=== PATIENT | male | born 1970 | race Caucasian/White ===

== ENCOUNTER 2017-02-15 10:56 | Emergency (ER) | payer MEDICARE, MEDICAID ==
[~2017-02-15] VITALS: Ht 177.8 cm; Wt 130.2 kg
[~2017-02-15 10:56] MED LIST: ASPI1TAB PO; CYMB60CA3 PO; DEPA500T2 PO; LIDO1OIN2 TOP; MAXA10TA14 PO; NEXI40CA PO; TRAM50TA2 PO; VITA100037 PO
[2017-02-15] MEDS ORDERED: ESCI10TA2 (11:11)
[2017-02-15] MEDS ORDERED: RIZA10TA4 (11:11)
[2017-02-15] MEDS ORDERED: LEVO50TA5 (11:11)
[2017-02-15] MEDS ORDERED: NS 1,000 ML IV ONE (13:15)
[2017-02-15] MEDS ORDERED: KETOROLAC 30 MG/ML VIAL (J1885) IV ONE (13:15)
[2017-02-15] MEDS ORDERED: ONDANSETRON 4MG/2ML VIAL (J2405) IV ONE (13:15)
--- NOTE | 2017-02-15 13:53 | REP ---
CT abdomen pelvis without IV or bowel contrast: Comparison is 2013. There is no hydronephrosis or hydroureter on the right on the left. There are no ureteral or bladder calculi on the right or the left. There are two right renal calculi approximately 3 mm in diameter each. There are approximately five left renal calculi measuring up to 6 mm in diameter. The right renal calculi are unchanged. There were no left renal calculi previously. The visualized lung lemus are unremarkable. The unenhanced hepatic parenchyma, gallbladder, pancreas and spleen are normal size and unremarkable. The adrenals are unremarkable. The unenhanced renal cortices are unremarkable. The abdominal aorta is unremarkable. Bowel and mesentery are unremarkable. Pelvis: The appendix has a normal appearance. There is no ascites or adenopathy. The bladder is unremarkable. The pelvic bowel loops are unremarkable. Impression: Bilateral nonobstructive renal calculi. No hydronephrosis. No ureteral or bladder calculi. Otherwise, negative CT of the abdomen and pelvis. Signed by Tenzin Bains MD 02/15/2017 01:44 P
[2017-02-15 14:18] LABS: BASO % 0.4 % (0.0-1.0); EOS # 0.4 K/mm3 (0.0-0.50); EOS % 4.3 % (0.0-3.0); LARGE UNSTAINED CELL # 0.1 K/mm3 (0.0-0.4); LARGE UNSTAINED CELL % 1.2 % (0.0-4.0); LYMPH # 2.5 K/mm3 (1.5-4.5); LYMPH % 24.6 % (24.0-44.0); MEAN CORPUSCULAR HEMOGLOBIN 27.4 pg (27.0-33.0); MEAN CORPUSCULAR HGB CONC 34.2 g/dl (32.0-36.5); MEAN CORPUSCULAR VOLUME 80.1 fl (80.0-96.0); MONO # 0.5 K/mm3 (0.0-0.8); MONO % 5.6 % (0.0-5.0); NEUTROPHILS # 6.1 K/mm3 (1.8-7.7); NEUTROPHILS % 63.9 % (36.0-66.0); PLATELET COUNT, AUTOMATED 236 k/mm3 (150-450); RED CELL DISTRIBUTION WIDTH 13.6 % (11.5-14.5); WHITE BLOOD COUNT 9.5 K/mm3 (4.0-10.0)
[2017-02-15 14:38] LABS: ALBUMIN 3.6 GM/DL (3.2-5.2); ALBUMIN/GLOBULIN RATIO 0.72 (1.00-1.93); ALKALINE PHOSPHATASE 88 U/L (45-117); ALT/SGPT 36 U/L (12-78); ANION GAP 5 MEQ/L (8-16); AST/SGOT 20 U/L (15-37); BILIRUBIN,DIRECT < 0.1 MG/DL (0.0-0.2); BILIRUBIN,TOTAL 0.4 MG/DL (0.2-1.0); BLOOD UREA NITROGEN 13 MG/DL (7-18); CALCIUM LEVEL 8.8 MG/DL (8.5-10.1); CARBON DIOXIDE LEVEL 28 MEQ/L (21-32); CHLORIDE LEVEL 102 MEQ/L (98-107); CREATININE FOR GFR 0.91 MG/DL (0.70-1.30); GLOMERULAR FILTRATION RATE > 60.0 (>60); GLUCOSE, FASTING 87 MG/DL (70-105); POTASSIUM SERUM 4.2 MEQ/L (3.5-5.1); SODIUM LEVEL 135 MEQ/L (136-145); TOTAL PROTEIN 8.6 GM/DL (6.4-8.2)
[2017-02-15] MEDS ORDERED: NAPR500T PO (14:57)
[2017-02-15 15:07] VITALS: BP 149/81
== END 2017-02-15 15:09 | disposition home or self-care (01) ==
LOC: M ED 12:14
DX: N23 Unspecified renal colic (principal); N20.0 Calculus of kidney; K21.9 Gastro-esophageal reflux disease without esophagitis; Z87.442 Personal history of urinary calculi; Z79.899 Other long term (current) drug therapy
CPT/HCPCS: 74176; 80048; 80076; 83690; 85025; 96374; 96375; 99282; J1885; J2405

== ENCOUNTER 2017-11-23 19:25 | Emergency (ER) | payer MEDICARE, MEDICAID ==
[2017-11-23 21:07] LABS: BASO % 0.4 % (0.0-1.0); EOS # 0.5 10^3/uL (0.0-0.50); EOS % 4.9 % (0.0-3.0); HEMATOCRIT 42.9 % (42.0-52.0); HEMOGLOBIN 13.6 g/dl (14.0-18.0); IMMATURE GRANULOCYTE # 0.1 10^3/uL (0-0); IMMATURE GRANULOCYTE % 0.8 % (0-0); LYMPH # 3.3 10^3/uL (1.5-4.5); MEAN CORPUSCULAR HGB CONC 31.7 g/dl (32.0-36.5); MEAN CORPUSCULAR VOLUME 81.9 fl (80.0-96.0); MONO # 0.9 10^3/uL (0.0-0.8); NEUTROPHILS # 5.9 10^3/uL (1.8-7.7); NEUTROPHILS % 54.9 % (36.0-66.0); PLATELET COUNT, AUTOMATED 242 10^3/uL (150-450); RED BLOOD COUNT 5.24 10^6/uL (4.30-6.10); RED CELL DISTRIBUTION WIDTH 14.1 % (11.5-14.5); WHITE BLOOD COUNT 10.7 10^3/uL (4.0-10.0)
[2017-11-23] MEDS: NS 1,000 ML IV (21:14)
[2017-11-23] MEDS: MORPHINE 4 MG/ML 1ML SYRINGE IV (21:15)
[2017-11-23 21:37] LABS: ALBUMIN 3.4 GM/DL (3.2-5.2); ALBUMIN/GLOBULIN RATIO 0.87 (1.00-1.93); ALKALINE PHOSPHATASE 96 U/L (45-117); ALT/SGPT 43 U/L (12-78); ANION GAP 7 MEQ/L (8-16); AST/SGOT 26 U/L (7-37); BILIRUBIN,DIRECT < 0.1 MG/DL (0.0-0.2); BILIRUBIN,TOTAL 0.2 MG/DL (0.2-1.0); BLOOD UREA NITROGEN 15 MG/DL (7-18); CALCIUM LEVEL 8.4 MG/DL (8.5-10.1); CARBON DIOXIDE LEVEL 27 MEQ/L (21-32); CHLORIDE LEVEL 109 MEQ/L (98-107); CREATININE FOR GFR 0.85 MG/DL (0.70-1.30); GLOMERULAR FILTRATION RATE > 60.0 (>60); GLUCOSE, FASTING 118 MG/DL (70-105); LIPASE 134 U/L (73-393); POTASSIUM SERUM 4.4 MEQ/L (3.5-5.1); SODIUM LEVEL 143 MEQ/L (136-145); TOTAL PROTEIN 7.3 GM/DL (6.4-8.2)
[2017-11-23 23:05] LABS: KETONE, URINE AUTO RFX NEGATIVE (NEGATIVE); LEUKOCYTE ESTERASE UR AUTO RFX NEGATIVE (NEGATIVE); MUCUS, URINE RFX SMALL (NEGATIVE); NITRITE, URINE AUTO RFX NEGATIVE (NEGATIVE); RBC, URINE AUTO RFX 3 /HPF (0-3); SQUAM EPITHELIAL CELL UR AURFX 0 /HPF (0-6); WBC, URINE AUTO RFX 0 /HPF (0-3)
== END 2017-11-23 23:53 | disposition home or self-care (01) ==
LOC: M ED 19:25
DX: R10.9 Unspecified abdominal pain (principal); N20.0 Calculus of kidney; K76.0 Fatty (change of) liver, not elsewhere classified; Z87.442 Personal history of urinary calculi; K21.9 Gastro-esophageal reflux disease without esophagitis; G43.909 Migraine, unspecified, not intractable, without status migrainosus; F41.0 Panic disorder [episodic paroxysmal anxiety]; Z79.899 Other long term (current) drug therapy
CPT/HCPCS: 74176

== ENCOUNTER → 2018-03-20 | Outpatient (CLI) | payer MEDICARE, MEDICAID | LOC: M LAB 13:12 | DX: M25.552 Pain in left hip (principal) | CPT/HCPCS: 73501 ==

== ENCOUNTER → 2020-04-17 | Outpatient (CLI) | payer MEDICARE, MEDICAID ==
[~2020-04-17] MED LIST changes: -ASPI1TAB PO; +ASPI81TA26 PO; +E-Z-GAS II EFFERVESCENT PACKET (SODIUM BICARB./CITRIC ACID/SIMETHICONE) As Ordered ONE; +E-Z-HD 98% w/w 340GM SUSP BTL As Ordered ONE; +E-Z-PAQUE 96% w/w SUSP 176GM BTL As Ordered ONE; +ESCI10TA2; +LEVO50TA5; +NAPR-837 PO; +RIZA10TA58; -VITA100037 PO; +VITA100067 PO
--- NOTE | 2020-04-17 19:13 | REP ---
Upper GI air contrast The procedure was performed under the direct supervision of Dr. Armas. The images were reviewed with Dr. Armas The go cart mechanic film shows no organomegaly or pathological masses. The intestinal gas pattern is non-specific. Liquid barium and gas producing crystals were given in the erect position as well as liquid barium in the prone oblique position in order to perform a double contrast upper GI examination. The oral and pharyngeal stages of deglutition are unremarkable. Esophageal transport is prompt and efficient and there is no esophagitis, stricture or mucosal ring. There is a sliding type hiatal hernia. Gastroesophageal reflux is not demonstrated on this examination. The stomach ramos are normally outlined . The rugal folds are smooth and regular. There is no gastritis neoplasm or ulcer disease. The duodenal ramos are normally outlined . The mucosal folds are smooth and regular. There is no duodenitis pancreatitis peptic ulcer disease or neoplasm. The visualized portion of the proximal small bowel appears normal in course and caliber. Impression: There is a sliding type hiatal hernia. Otherwise, unremarkable double contrast upper GI examination. 1.5 minutes of fluoro time was utilized for this procedure. Electronically Signed by DEVONTE Galvan 04/17/2020 04:44 P Electronically Signed by Tenzin Armas MD 04/17/2020 07:04 P
== END ==
LOC: M RAD 10:11
PROVIDERS: ATTEND Physician Assistant
DX: R10.9 Unspecified abdominal pain (principal); K44.9 Diaphragmatic hernia without obstruction or gangrene

== ENCOUNTER → 2020-05-23 | Outpatient (CLI) | payer MEDICARE, MEDICAID ==
[~2020-05-23] MED LIST changes: -E-Z-GAS II EFFERVESCENT PACKET (SODIUM BICARB./CITRIC ACID/SIMETHICONE) As Ordered ONE; -E-Z-HD 98% w/w 340GM SUSP BTL As Ordered ONE; -E-Z-PAQUE 96% w/w SUSP 176GM BTL As Ordered ONE
--- NOTE | 2020-05-24 12:09 | REP ---
REASON: Possible ventral hernia. Patient has epigastric pain. Ultrasonographic evaluation of the abdominal wall shows a 2.2-cm sized ventral rent through which mesentery and bowel protrudes. IMPRESSION: Evidence of a ventral hernia, as described above. Consider CT for complete evaluation. Electronically Signed by Nain Bhatti DO 05/25/2020 08:23 A
== END ==
LOC: M RAD 13:18
PROVIDERS: ATTEND Surgery
DX: K43.9 Ventral hernia without obstruction or gangrene (principal)

== ENCOUNTER → 2020-10-22 | Outpatient (REF) | payer MEDICARE, MEDICAID | LOC: M LAB REF 09:14 | PROVIDERS: ATTEND Physician Assistant | DX: Z20.2 Contact with and (suspected) exposure to infections with a predominantly sexual mode of transmission (principal) ==

== ENCOUNTER → 2021-08-07 | Outpatient (CLI) | payer MEDICARE, MEDICAID ==
[~2021-08-07] MED LIST changes: +ESCI10TA16; -ESCI10TA2
--- NOTE | 2021-08-07 11:37 | REP ---
INDICATION: WHEEZING. COMPARISON: June 03, 2016. TECHNIQUE: Three views.. FINDINGS: The lungs are well inflated and free of infiltrate. The pleural angles are sharp. The heart size is normal. Pulmonary vasculature is not increased. No significant bony abnormality is seen. IMPRESSION: Negative chest x-ray. <Electronically signed by Carlos Duncan > 08/07/21 0920
--- NOTE | 2021-08-07 11:49 | REP ---
INDICATION: PAIN. COMPARISON: None. TECHNIQUE: Four views of the right shoulder are provided. FINDINGS: There is osteoarthritic hypertrophy and narrowing of the right acromioclavicular joint. There is glenohumeral spurring as well. Glenohumeral acromioclavicular joints are normally aligned. Periarticular soft tissues are unremarkable. The visualized right rib cage is unremarkable. 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 No acute bony abnormality. <Electronically signed by Carlos Duncan > 08/07/21 [id number]
== END ==
LOC: M WUC 10:25
PROVIDERS: ATTEND Physician Assistant
DX: R06.2 Wheezing (principal); M19.011 Primary osteoarthritis, right shoulder

== ENCOUNTER 2021-10-31 16:50 | Emergency (ER) | payer MEDICARE, MEDICAID ==
[~2021-10-31] VITALS: Ht 177.8 cm; Wt 125.6 kg
[~2021-10-31 16:50] MED LIST changes: -CYMB60CA3 PO; +CYMB60CA4 PO
[2021-10-31 16:51] VITALS: BP 143/92
[2021-10-31] MEDS ORDERED: VENTAER INH (17:00)
[2021-10-31] MEDS ORDERED: PRED20TA PO (17:44)
[2021-10-31] MEDS ORDERED: predniSONE 20 MG TAB PO ONE (17:50)
== END 2021-10-31 18:00 | disposition home or self-care (01) ==
LOC: M ED 16:50
DX: J20.9 Acute bronchitis, unspecified (principal); E78.5 Hyperlipidemia, unspecified; F32.89 Other specified depressive episodes; Z87.442 Personal history of urinary calculi; Z87.11 Personal history of peptic ulcer disease
CPT/HCPCS: 71045; 99282; J7512

== ENCOUNTER → 2022-10-18 | Outpatient (CLI) | payer MEDICARE, MEDICAID ==
[~2022-10-18] MED LIST changes: -MAXA10TA14 PO; +PRED20TA PO; +RIZA10TA64 PO; +VENTAER INH
[2022-10-18 17:13] LABS: HEMOGLOBIN 14.6 g/dl (13.5-17.5); MEAN CORPUSCULAR HEMOGLOBIN 25.3 pg (27.0-33.0); MEAN CORPUSCULAR HGB CONC 30.4 g/dl (32.0-36.5); MEAN CORPUSCULAR VOLUME 83.3 fl (80.0-96.0); PLATELET COUNT, AUTOMATED 265 10^3/uL (150-450); RED BLOOD COUNT 5.76 10^6/uL (4.30-6.10); WHITE BLOOD COUNT 11.3 10^3/uL (4.0-10.0)
[2022-10-18 17:56] LABS: ALBUMIN 3.2 G/DL (3.2-5.2); ALKALINE PHOSPHATASE 95 U/L (46-116); ALT/SGPT 45 U/L (7.0-40); AST/SGOT 25 U/L (<34); BILIRUBIN,TOTAL 0.2 MG/DL (0.3-1.2); BLOOD UREA NITROGEN 16 MG/DL (9-23); CALCIUM LEVEL 8.4 MG/DL (8.5-10.1); CARBON DIOXIDE LEVEL 27 MMOL/L (20-31); CHLORIDE LEVEL 105 MMOL/L (98-107); CHOLESTEROL LEVEL 123 MG/DL (<200); CHOLESTEROL RISK RATIO 3.73 (<5); CREATININE FOR GFR 0.73 MG/DL (0.70-1.30); GLOMERULAR FILTRATION RATE > 60.0 (>56); GLUCOSE, FASTING 90 MG/DL (60-100); HDL CHOLESTEROL 32.9 MG/DL (>40); LDL CHOLESTEROL 37.1 MG/DL (<100); NON-HDL-C 90 MG/DL; POTASSIUM SERUM 4.4 MMOL/L (3.5-5.1); PROSTATIC SPECIFIC AG MONITOR 0.87 NG/ML (< 4.00); SODIUM LEVEL 139 MMOL/L (136-145); TOTAL PROTEIN 6.9 G/DL (5.7-8.2); TRIGLYCERIDES LEVEL 265 MG/DL (<150)
[2022-10-18 17:58] LABS: THYROID STIMULATING HORMONE 2.661 uIU/ML (0.55-4.78)
[2022-10-18 17:59] LABS: TOTAL 25(OH) VITAMIN D 30.3 NG/ML (20.0-100.0)
[2022-10-18 18:26] LABS: HEMOGLOBIN A1c 5.6 % (4.0-6.0)
== END ==
LOC: M WUC 13:25
PROVIDERS: ATTEND Physician Assistant
DX: E03.9 Hypothyroidism, unspecified (principal); E55.9 Vitamin D deficiency, unspecified; R35.1 Nocturia; R73.03 Prediabetes; R78.2 Finding of cocaine in blood; R06.02 Shortness of breath; R05.3 Chronic cough; R53.83 Other fatigue; Z79.899 Other long term (current) drug therapy

== ENCOUNTER → 2022-12-27 | Outpatient (CLI) | payer MEDICARE, MEDICAID ==
[2022-12-27 16:52] LABS: HEMATOCRIT 48.4 % (42.0-52.0); HEMOGLOBIN 14.8 g/dl (13.5-17.5); MEAN CORPUSCULAR HEMOGLOBIN 24.6 pg (27.0-33.0); MEAN CORPUSCULAR HGB CONC 30.6 g/dl (32.0-36.5); MEAN CORPUSCULAR VOLUME 80.4 fl (80.0-96.0); PLATELET COUNT, AUTOMATED 286 10^3/uL (150-450); RED BLOOD COUNT 6.02 10^6/uL (4.30-6.10); WHITE BLOOD COUNT 14.7 10^3/uL (4.0-10.0)
[2022-12-27 16:57] LABS: FOLLICLE STIMULATING HORMONE 3.4 mIU/ML (1.4-18.1); LUTEINIZING HORMONE 3.4 mIU/ML (1.5-9.3); PROLACTIN 9.52 NG/ML (2.1-17.7)
== END ==
LOC: M WUC 13:33
PROVIDERS: ATTEND Internal Medicine Endocrinology, Diabetes & Metabolism
DX: E29.1 Testicular hypofunction (principal)

== ENCOUNTER → 2023-03-04 | Outpatient (CLI) | payer MEDICARE, MEDICAID ==
[~2023-03-04] MED LIST changes: +ISOVUE-370 76% 100ML VIAL As Ordered ONE
== END ==
LOC: M RAD 07:58
PROVIDERS: ATTEND Physician Assistant
DX: R91.8 Other nonspecific abnormal finding of lung field (principal); R06.02 Shortness of breath; R05.3 Chronic cough
CPT/HCPCS: 71260; Q9967

== ENCOUNTER 2023-11-27 15:03 | Emergency (ER) | payer MEDICARE, MEDICAID ==
[~2023-11-27] VITALS: Ht 177.8 cm; Wt 131.7 kg
[~2023-11-27 15:03] MED LIST changes: -ISOVUE-370 76% 100ML VIAL As Ordered ONE
[2023-11-27 15:05] VITALS: TEMP 97.7
[2023-11-27] MEDS ORDERED: ALBUTEROL SULFATE 2.5MG/0.5ML INH NEB SOLN NEB ONE (15:40)
[2023-11-27] MEDS ORDERED: dexAMETHasone 20MG/5ML VIAL IM ONE (15:40)
[2023-11-27 17:20] VITALS: O2SAT 95
[2023-11-27] MEDS ORDERED: BENZ200C70 PO (17:57)
[2023-11-27] MEDS ORDERED: ALBU6.7H6 INH (17:57)
[2023-11-27] MEDS ORDERED: MEDR4PAK PO (17:57)
[2023-11-27 18:21] VITALS: BP 166/86; O2SAT 94
== END 2023-11-27 18:26 | disposition home or self-care (01) ==
LOC: M ED 15:03
DX: J20.9 Acute bronchitis, unspecified (principal); J06.9 Acute upper respiratory infection, unspecified; Z79.52 Long term (current) use of systemic steroids; Z79.899 Other long term (current) drug therapy
CPT/HCPCS: 71046; 87486; 87581; 87633; 87798; 87880; 94640; 96372; 99284; J1100

== ENCOUNTER → 2024-02-03 | Outpatient (CLI) | payer MEDICARE, MEDICAID ==
[~2024-02-03] MED LIST changes: +ALBU6.7H6 INH; +BENZ200C70 PO; +MEDR4PAK PO
[2024-02-03 17:49] LABS: HEMATOCRIT 48.8 % (42.0-52.0); HEMOGLOBIN 15.2 g/dl (13.5-17.5); MEAN CORPUSCULAR HEMOGLOBIN 25.8 pg (27.0-33.0); MEAN CORPUSCULAR HGB CONC 31.1 g/dl (32.0-36.5); MEAN CORPUSCULAR VOLUME 82.9 fl (80.0-96.0); PLATELET COUNT, AUTOMATED 260 10^3/uL (150-450); RED BLOOD COUNT 5.89 10^6/uL (4.30-6.10); WHITE BLOOD COUNT 10.8 10^3/uL (4.0-10.0)
[2024-02-03 18:07] LABS: ALBUMIN 3.4 G/DL (3.2-5.2); ALKALINE PHOSPHATASE 81 U/L (46-116); ALT/SGPT 42 U/L (7.0-40); AST/SGOT 30 U/L (<34); BILIRUBIN,TOTAL 0.6 MG/DL (0.3-1.2); BLOOD UREA NITROGEN 15 MG/DL (9-23); CALCIUM LEVEL 9.6 MG/DL (8.5-10.1); CARBON DIOXIDE LEVEL 31 MMOL/L (20-31); CHLORIDE LEVEL 102 MMOL/L (98-107); CHOLESTEROL LEVEL 136 MG/DL (<200); CHOLESTEROL RISK RATIO 3.96 (<5); CREATININE FOR GFR 0.79 MG/DL (0.70-1.30); GLOMERULAR FILTRATION RATE > 60.0 (>56); GLUCOSE, FASTING 87 MG/DL (60-100); HDL CHOLESTEROL 34.3 MG/DL (>40); LDL CHOLESTEROL 63.7 MG/DL (<100); NON-HDL-C 101.7 MG/DL; POTASSIUM SERUM 4.3 MMOL/L (3.5-5.1); PROSTATIC SPECIFIC AG MONITOR 1.49 NG/ML (< 4.00); SODIUM LEVEL 135 MMOL/L (136-145); TOTAL PROTEIN 7.5 G/DL (5.7-8.2); TRIGLYCERIDES LEVEL 190 MG/DL (<150)
[2024-02-03 18:09] LABS: THYROID STIMULATING HORMONE 3.339 uIU/ML (0.55-4.78)
[2024-02-03 21:27] LABS: APPEARANCE, URINE HAZY (CLEAR); BACTERIA, URINE AUTO NEGATIVE (NEGATIVE); BILIRUBIN, URINE AUTO NEGATIVE (NEGATIVE); BLOOD, URINE BLOOD NEGATIVE (NEGATIVE); COLOR, URINE YELLOW (YELLOW); GLUCOSE, URINE (UA) AUTO NEGATIVE (NEGATIVE); KETONE, URINE AUTO NEGATIVE (NEGATIVE); LEUKOCYTE ESTERASE, URINE AUTO NEGATIVE (NEGATIVE); MUCUS, URINE LARGE (NEGATIVE); NITRITE, URINE AUTO NEGATIVE (NEGATIVE); PROTEIN, URINE AUTO 1+ mg/dL (NEGATIVE); RBC, URINE AUTO 1 /HPF (0-3); SPECIFIC GRAVITY URINE AUTO 1.025 (1.002-1.035); SQUAMOUS EPITHELIAL CELL UR AU 0 /HPF (0-6); UROBILINOGEN, URINE AUTO 0.2 mg/dL (0.0-2.0); WBC, URINE AUTO 0 /HPF (0-3)
== END ==
LOC: M WUC 13:23
PROVIDERS: ATTEND Physician Assistant
DX: E03.9 Hypothyroidism, unspecified (principal); E78.2 Mixed hyperlipidemia; R35.1 Nocturia; E66.9 Obesity, unspecified

== ENCOUNTER → 2024-07-11 | Outpatient (CLI) | payer MEDICARE, MEDICAID | LOC: M WUC 14:10 | PROVIDERS: ATTEND Physician Assistant | DX: R06.02 Shortness of breath (principal); R05.3 Chronic cough ==

== ENCOUNTER → 2024-07-18 | Outpatient (CLI) | payer MEDICARE, MEDICAID | LOC: M WUC 11:10 | PROVIDERS: ATTEND Physician Assistant | DX: M25.552 Pain in left hip (principal); M25.551 Pain in right hip ==

== ENCOUNTER → 2024-09-12 | Outpatient (CLI) | payer MEDICARE, MEDICAID ==
[2024-09-12 19:15] LABS: ALKALINE PHOSPHATASE 117 U/L (40-129); ALT/SGPT 72 U/L (7.0-40); AST/SGOT 63 U/L (<34); BILIRUBIN,TOTAL 0.3 MG/DL (0.3-1.2); BLOOD UREA NITROGEN 16 MG/DL (9-23); CALCIUM LEVEL 9.3 MG/DL (8.5-10.1); CARBON DIOXIDE LEVEL 28 MMOL/L (20-31); CHLORIDE LEVEL 104 MMOL/L (98-107); CREATININE FOR GFR 0.65 MG/DL (0.70-1.30); GLOMERULAR FILTRATION RATE > 60.0 (>56); GLUCOSE, FASTING 260 MG/DL (60-100); POTASSIUM SERUM 4.8 MMOL/L (3.5-5.1); SODIUM LEVEL 134 MMOL/L (136-145); TOTAL PROTEIN 7.5 G/DL (5.7-8.2)
[2024-09-12 19:19] LABS: THYROID STIMULATING HORMONE 1.091 uIU/ML (0.55-4.78)
[2024-09-12 19:26] LABS: HEMATOCRIT 47.1 % (42.0-52.0); HEMOGLOBIN 14.8 g/dl (13.5-17.5); MEAN CORPUSCULAR HEMOGLOBIN 26.9 pg (27.0-33.0); MEAN CORPUSCULAR HGB CONC 31.4 g/dl (32.0-36.5); MEAN CORPUSCULAR VOLUME 85.6 fl (80.0-96.0); PLATELET COUNT, AUTOMATED 234 10^3/uL (150-450)
[2024-09-12 20:07] LABS: HEMOGLOBIN A1c 8.4 % (4.0-6.0)
[2024-09-13 06:45] LABS: WHITE BLOOD COUNT 10.8 10^3/uL (4.0-10.0)
== END ==
LOC: M WUC 15:12
PROVIDERS: ATTEND Physician Assistant
DX: R73.01 Impaired fasting glucose (principal); E03.9 Hypothyroidism, unspecified

== ENCOUNTER → 2024-11-22 | Outpatient (CLI) | payer MEDICARE, MEDICAID ==
[~2024-11-22] MED LIST changes: +METHACHOLINE KIT (6 VIAL.NEB PREMIX) INH ONE
== END ==
LOC: M CARPUL 12:59
PROVIDERS: ATTEND Physician Assistant
DX: R06.02 Shortness of breath (principal)

== ENCOUNTER → 2025-01-14 | Outpatient (CLI) | payer MEDICARE, MEDICAID ==
[~2025-01-14] MED LIST changes: -METHACHOLINE KIT (6 VIAL.NEB PREMIX) INH ONE
[2025-01-14 17:39] LABS: LIPASE 46 U/L (12-53)
[2025-01-15 07:31] LABS: AMYLASE 49 U/L (30-118)
== END ==
LOC: M WUC 14:54
PROVIDERS: ATTEND Physician Assistant
DX: E11.9 Type 2 diabetes mellitus without complications (principal); R10.84 Generalized abdominal pain

== ENCOUNTER → 2025-07-25 | Outpatient (CLI) | payer MEDICARE, MEDICAID ==
[2025-07-25 15:31] LABS: ALT/SGPT 48 U/L (7.0-40); AST/SGOT 32 U/L (<34); CALCIUM LEVEL 8.6 MG/DL (8.5-10.1); CARBON DIOXIDE LEVEL 27 MMOL/L (20-31); CHLORIDE LEVEL 104 MMOL/L (98-107); CHOLESTEROL LEVEL 102 MG/DL (<200); CHOLESTEROL RISK RATIO 2.41 (<5); CREATININE FOR GFR 0.79 MG/DL (0.70-1.30); GLOMERULAR FILTRATION RATE > 90.0 (>56); LDL CHOLESTEROL 42.3 MG/DL (<100); NON-HDL-C 59.7 MG/DL; POTASSIUM SERUM 3.8 MMOL/L (3.5-5.1); SODIUM LEVEL 141 MMOL/L (136-145); TRIGLYCERIDES LEVEL 87 MG/DL (<150)
[2025-07-25 15:36] LABS: ESTIMATED AVERAGE GLUCOSE 105.0 MG/DL (60-110)
[2025-07-25 15:38] LABS: PLATELET COUNT, AUTOMATED 251 10^3/uL (150-450)
== END ==
LOC: M WUC 11:14
PROVIDERS: ATTEND Physician Assistant
DX: E11.9 Type 2 diabetes mellitus without complications (principal); E03.9 Hypothyroidism, unspecified; E78.2 Mixed hyperlipidemia

== ENCOUNTER → 2025-08-20 | Outpatient (CLI) | payer MEDICARE, MEDICAID ==
[2025-08-20 18:04] LABS: BASO # 0.0 10^3/uL (0.0-0.2); BASO % 0.3 % (0.0-1.0); EOS # 0.4 10^3/uL (0.0-0.5); EOS % 3.4 % (0.0-3.0); LYMPH # 2.4 10^3/uL (1.5-5.0); LYMPH % 20.7 % (24.0-44.0); MONO # 0.8 10^3/uL (0.0-0.8); MONO % 6.5 % (2.0-8.0); NEUTROPHILS # 8.0 10^3/uL (1.5-8.5); NEUTROPHILS % 68.8 % (36.0-66.0); PLATELET COUNT, AUTOMATED 286 10^3/uL (150-450)
== END ==
LOC: M WUC 15:12
PROVIDERS: ATTEND Physician Assistant
DX: N20.0 Calculus of kidney (principal); R50.9 Fever, unspecified

== ENCOUNTER → 2025-10-24 | Outpatient (CLI) | payer MEDICARE, MEDICAID ==
[2025-10-24 13:07] LABS: MAGNESIUM LEVEL 1.9 MG/DL (1.8-2.4)
[2025-10-24 13:12] LABS: VITAMIN B12 LEVEL 525.0 PG/ML (211-911)
[2025-10-24 13:27] LABS: ESTIMATED AVERAGE GLUCOSE 88.0 MG/DL (60-110)
== END ==
LOC: M WUC 11:13
PROVIDERS: ATTEND Physician Assistant
DX: R20.2 Paresthesia of skin (principal); G47.62 Sleep related leg cramps; E11.9 Type 2 diabetes mellitus without complications